=== PATIENT | female | born 1980 | race Two or more races ===

== ENCOUNTER 2017-05-06 23:41 | Emergency (ER) ==
[2017-05-06] MEDS ORDERED: BENADRYL IVP STA (23:46)
[2017-05-06] MEDS ORDERED: SOLU-MEDROL 125 MG IVP STA (23:46)
[2017-05-06] MEDS ORDERED: SODIUM CHLORIDE 1,000 ML IV STA (23:46)
[2017-05-06] MEDS ORDERED: PEPCID IVP STA (23:47)
[2017-05-06] MEDS ORDERED: XOPENEX 1.25 MG NEB STA (23:47)
[2017-05-06 23:51] VITALS: BP 127/81; TEMP 98.6; BMI 39.1
--- NOTE | 2017-05-07 01:14 | ED.PDOC ---
General ED Provider: Dr. CALVIN HAHN-ER Chief Complaint: Allergic Reaction Stated Complaint: dimple had this before=--i had to use epi pen Time Seen by Physician: 23:45 Mode of Arrival: Walk-In Information Source: Patient Exam Limitations: No limitations Nursing and Triage Documentation Reviewed and Agree: Yes Respiratory Complaint Exam - Shortness of Air Complaint/Exam Onset/Duration: 45min Symptoms Are: Still present Timing: Constant Initial Severity: Mild Current Severity: Mild Character: Reports: Dyspnea at rest Aggravating: Reports: None Alleviating: Reports: None Associated Signs and Symptoms: Reports: Wheezing Related History: Reports: Similar episode History of Healthcare-Acquired Pneumonia: No Pulmonary Embolism Risk Factors: Reports: None Pseudomonas Risk Factors: Reports: None Tuberculosis Risk Factors: Reports: None Home Peak Flow: Recent personal best Recent Stress Test: No Recent Echo/LV Function: No Respiratory Distress: Mild Tracheal Deviation: No Subcutaneous Emphysema: No Accessory Muscle Use: No Diminished Breath Sounds: No Prolonged Expiratory Phase: No Unable to Speak Full Sentences: No Fatigue: No Leg Swelling: No Maribel's Sign Present: No Grunting Respirations: No Kussmaul Respirations: No Differential Diagnoses: Other Review of Systems - Review Of Systems Constitutional: Reports: No symptoms Eyes: Reports: No symptoms Ears, Nose, Mouth, Throat: Reports: No symptoms Respiratory: Reports: Cough, Short of air Cardiac: Reports: No symptoms GI: Reports: No symptoms : Reports: No symptoms Musculoskeletal: Reports: No symptoms Skin: Reports: No symptoms Neurological: Reports: No symptoms Endocrine: Reports: No symptoms Hematologic/Lymphatic: Reports: No symptoms All Other Systems: Reviewed and Negative Past Medical History - Past Medical History Previously Healthy: Yes Endocrine: Reports: None Cardiovascular: Reports: None Respiratory: Reports: None Hematological: Reports: None Gastrointestinal: Reports: None Genitourinary: Reports: None Neuro/Psych: Reports: None Musculoskeletal: Reports: None Cancer: Reports: None Last Menstrual Period: 4 yrs ago - depo shot - Surgical History General Surgical History: Reports: None - Family History Family History: Reports: None - Social History Smoking Status: Former smoker Hx Substance Use: No Alcohol Screening: Occasionally Lives: With family - Immunizations Tetanus Shot up to Date: Yes Physical Exam - Physical Exam Appearance: Well-appearing Eyes: RUPAL, EOMI, Conjunctiva clear ENT: Ears normal, Nose normal, Oropharynx normal Neck: Supple Respiratory: Airway patent Cardiovascular: RRR, Pulses normal, No rub, No murmur GI/: Soft, Nontender, No masses, Bowel sounds normal, No Organomegaly Musculoskeletal: Normal strength Skin: Warm Neurological: Sensation intact Psychiatric: Affect appropriate, Mood appropriate Critical Care Note - Critical Care Note Total Time (mins): 0 Course - Course Orders, Labs, Meds: Orders Category Date Time Status NEBULIZER TREATMENT Stat CARDIO 05/06/17 23:47 Completed ED IV/MEDIPORT/POWERPORT .ONCE EMERGENCY 05/06/17 23:46 Active 0.9 % Sodium Chloride [Saline Flush] MEDS 05/06/17 23:46 Ordered 1 syr IVF PRN PRN Diphenhydramine Inj [Benadryl] MEDS 05/06/17 23:46 Discontinued 50 mg IVP ONCE STA Famotidine Inj [Pepcid] MEDS 05/06/17 23:47 Discontinued 40 mg IVP ONCE STA Levalbuterol HCl [Xopenex 1.25 mg] MEDS 05/06/17 23:47 Discontinued 1 vial NEB ONCE STA Methylprednisolone Sod Succ/Pf [Solu-Medrol 125 mg] MEDS 05/06/17 23:46 Discontinued 125 mg IVP ONCE STA Sodium Chloride 0.9% [Sodium Chloride] 1,000 ml MEDS 05/06/17 23:46 Active IV 100 mls/hr Medications Generic Name Dose Route Start Last Admin Trade Name Freq PRN Reason Stop Dose Admin Sodium Chloride 1,000 mls @ 100 mls/hr 05/06/17 23:46 05/07/17 00:33 Sodium Chloride IV 05/07/17 09:45 100 mls/hr .Q10H STA Administration Sodium Chloride 1 syr 05/06/17 23:46 Saline Flush IVF PRN PRN To flush IV Discontinued Medications Generic Name Dose Route Start Last Admin Trade Name Freq PRN Reason Stop Dose Admin Diphenhydramine HCl 50 mg 05/06/17 23:46 05/07/17 00:33 Benadryl IVP 05/06/17 23:47 50 mg ONCE STA Administration Famotidine 40 mg 05/06/17 23:47 05/07/17 00:33 Pepcid IVP 05/06/17 23:48 40 mg ONCE STA Administration Levalbuterol HCl 1 vial 05/06/17 23:47 05/06/17 23:53 Xopenex 1.25 Mg NEB 05/06/17 23:48 1 vial ONCE STA Administration Methylprednisolone Sodium Succinate 125 mg 05/06/17 23:46 05/07/17 00:33 Solu-Medrol 125 Mg IVP 05/06/17 23:47 125 mg ONCE STA Administration Vital Signs: Temp Pulse Resp BP Pulse Ox 05/06/17 23:43 98.6 F 105 H 22 127/81 96 Departure - Departure Time of Disposition: 01:14 Disposition: HOME SELF-CARE Discharge Problem: Allergic state Instructions: Urticaria (ED) Condition: Good Pt referred to PMD for follow-up: Yes Additional Instructions: epi pen, medrol dose pack--f/u wtih pcp Allergies/Adverse Reactions: Allergies No Known Allergies Allergy (Unverified 05/06/17 23:51) Home Medications: Ambulatory Orders Albuterol Sulfate [Proair Hfa] 2 puff IH Q4H PRN 05/06/17 Allopurinol [Zyloprim] 100 mg PO DAILY 05/06/17 Norgestimate-Ethinyl Estradiol [Trinessa Tablet] 1 tab PO DAILY 05/06/17 Cetirizine HCl 10 mg PO DAILY 05/07/17 Disposition Discussed With: Patient, Family
== END 2017-05-07 01:20 | disposition home or self-care (01) ==
LOC: ED 23:41
DX: L50.0 Allergic urticaria (principal); R06.2 Wheezing; R05 Cough; R06.02 Shortness of breath
CPT/HCPCS: 94640; 96360; 96361; 96375; 99283